=== PATIENT | female | born 1930 | race Caucasian/White ===

== ENCOUNTER 2018-07-28 22:52 | Emergency (ER) | payer SELFPAY ==
[~2018-07-28] VITALS: Ht 152.4 cm; Wt 46.2 kg
[~2018-07-28 22:52] MED LIST: AMLO2.5T2 PO; DIME25TA PO; IBUP-1542 PO; MECL12.574 PO
[2018-07-28 23:08] VITALS: Ht 152.4 cm; Wt 46.2 kg
[2018-07-29] MEDS ORDERED: IBUP-1561 PO (01:12)
[2018-07-29] MEDS ORDERED: SULF1TAB31 PO (01:12)
[2018-07-29] MEDS ORDERED: CEPH-443 PO (01:12)
--- NOTE | 2018-07-29 01:17 | ERD ---
ER Documentation Chief Complaint Chief Complaint L pinky toe infection x 2 weeks HPI This is an 87-year-old female comes in with a left pinky toe infection for 2 weeks. Apparently it is red and swollen and painful and today the granddaughter noticed the pus was coming out of the side of the nail. She denies any fevers or chills. She denies any trauma. She denies any other current complaints. ROS All systems reviewed and are negative except as per history of present illness. Medications Home Meds Active Scripts Ibuprofen* (Motrin*) 400 Mg Tab, 400 MG PO Q6, #30 TAB Prov:KENNEDY DOTY S. 07/29/18 Cephalexin* (Keflex*) 500 Mg Capsule, 500 MG PO QID for 5 Days, CAP Prov:KENNEDY DOTY S. 07/29/18 Sulfamethoxazole/Trimethoprim* (Bactrim Ds* Tablet) 1 Each Tablet, 1 TAB PO BID, #14 TAB Prov:KENNEDY DOTY S. 07/29/18 Amlodipine Besylate* (Norvasc*) 2.5 Mg Tablet, 2.5 MG PO DAILY for 15 Days, TAB Prov:MARAL WING MD 04/20/16 Meclizine Hcl* (Antivert*) 12.5 Mg Tab, 25 MG PO Q6H PRN for DIZZINESS, #20 TAB Prov:MARAL WING MD 04/20/16 Reported Medications Ibuprofen* (Ibuprofen*) 600 Mg Tablet, 600 MG PO Q6H PRN for PAIN, TAB 04/19/16 Dimenhydrinate* (Dramamine*) 25 Mg Tab.chew, 25 MG PO BID, #120 TAB.CHEW 04/19/16 Allergies Allergies: Coded Allergies: No Known Allergy (Unverified , 04/19/16) PMhx/Soc History of Surgery: Yes (abdominal surgery 25 years ago) Anesthesia Reaction: No Hx Neurological Disorder: No Hx Respiratory Disorders: No Hx Cardiac Disorders: No Hx Psychiatric Problems: No Hx Miscellaneous Medical Probl: Yes (arthritis in hands) Hx Alcohol Use: No Hx Substance Use: No Hx Tobacco Use: No Smoking Status: Never smoker Physical Exam Vitals Vital Signs Date Temp Pulse Resp B/P (MAP) Pulse Ox O2 O2 Flow FiO2 Time Delivery Rate 07/28/18 98.8 89 16 194/89 98 23:08 (124) Physical Exam Const: No acute distress Head: Atraumatic Eyes: Normal Conjunctiva ENT: Normal External Ears, Nose and Mouth. Neck: Full range of motion. No meningismus. Resp: Clear to auscultation bilaterally Cardio: Regular rate and rhythm, no murmurs Abd: Soft, non tender, non distended. Normal bowel sounds Skin: Right pinky toe with mild erythema and induration noted distal tip Back: No midline or flank tenderness Ext: No cyanosis, or edema Neur: Awake and alert Psych: Normal Mood and Affect Results 24 hrs Current Medications Medications Dose Sig/Billy Start Time Status Last (Trade) Ordered Route PRN Stop Time Admin Dose Reason Admin Cefazolin 1 gm ONCE ONCE 07/29/18 Sodium IM 01:30 (Ancef) 07/29/18 01:31 Ibuprofen 600 mg ONCE ONCE 07/29/18 (Motrin) PO 01:30 07/29/18 01:31 Procedures/MDM Emergency department course: Patient seen and evaluated changes. He given Ancef intramuscularly Medical decision making: This is a very pleasant 87-year-old female with a mild ingrown toenail infection. At this point she can be treated with antibiotics and follow-up with primary care physician Departure Diagnosis: Primary Impression: Foot pain Laterality: unspecified laterality Qualified Codes: M79.673 - Pain in unspecified foot Condition: Stable Patient Instructions: Ingrown Toenail, Infected (Abx Only) KENNEDY DOTY Jul 29, 2018 01:17
[2018-07-29] MEDS ORDERED: CEFAZOLIN 1 GM INJ IM ONE (01:30)
[2018-07-29] MEDS ORDERED: IBUPROFEN 600 MG TAB PO ONE (01:30)
[2018-07-29 02:57] VITALS: BP 176/67; PULSE 77; RESP 19
== END 2018-07-29 02:58 | disposition home or self-care (01) ==
LOC: E/R 22:52
DX: L60.0 Ingrowing nail (principal); M79.671 Pain in right foot
CPT/HCPCS: 96372; 99284; J0690